=== PATIENT | female | born 1960 | race Caucasian/White ===

== ENCOUNTER 2018-07-15 19:16 | Observation (INO) ==
[2018-07-15] MEDS ORDERED: 0.9 % Sodium Chloride 1,000 ML IVC ONE ×2 (19:47→22:37)
[2018-07-15] MEDS ORDERED: Ondansetron 4 MG/2 ML VIAL IVP ONE (19:48)
[2018-07-15] MEDS ORDERED: *HR* Morphine 2 MG/ML SYRINGE IVP ONE (19:48)
[2018-07-15 20:11] LABS: Basophils % 0.1 %; Eosinophils % 0.3 %; Hematocrit 46.4 % (35.3-44.9); Hemoglobin 15.5 g/dL (11.5-15.4); Immature Granulocytes % 0.3 % (0-4); Lymphocytes # 0.4 K/mcL (0.6-4.6); Lymphocytes % 3.6 %; Mean Corpuscular HGB Conc 33.4 g/dL (31.6-35.5); Mean Corpuscular Hemoglobin 29.5 pg (28.0-33.3); Mean Corpuscular Volume 88.4 fL (83.0-100.0); Mean Platelet Volume 10.1 fL (9.4-12.4); Monocytes # 0.2 K/mcL (0.0-1.3); Monocytes % 1.6 %; Neutrophils # 9.1 K/mcL (1.6-8.9); Platelet Count 241 K/mcL (140-400); Red Blood Count 5.25 M/mcL (3.82-4.97); Red Cell Distribution Width 12.5 % (11.5-14.5); Segmented Neutrophils % 94.1 %
[2018-07-15 20:16] LABS: INR 1.1; Prothrombin Time 12.6 Seconds (9.4-12.1)
[2018-07-15 20:19] LABS: Activated Partial Thrombo Time 31.8 Seconds (26.0-36.0)
[2018-07-15 20:26] LABS: BUN/Creatinine Ratio 23 (6-26); Blood Urea Nitrogen 25 mg/dL (6-20); Calcium 9.6 mg/dL (8.6-10.3); Carbon Dioxide 25 mEq/L (23-29); Chloride 102 mEq/L (98-107); Glucose 112 mg/dL (70-105); Osmolality,Calculated 291 (280-300); Potassium 3.3 mEq/L (3.5-5.1); Sodium 138 mEq/L (136-145); Troponin I < 0.03 ng/mL (< 0.04); eGFR For Non-African Americans 53 (> 60)
[2018-07-15 20:37] LABS: Bilirubin,Urine Small (Negative); Blood,Urine Negative (Negative); Clarity,Urine Clear (Clear); Color,Urine Dark Yellow (Yellow); Glucose,Urine (UA) Normal (Normal); Ketones,Urine 15 mg/dL (Negative); Leukocyte Esterase,Urine Negative (Negative); Nitrite,Urine Negative (Negative); PH,Urine 5.5 pH Units (5.0-8.0); Protein,Urine Trace mg/dL (Neg-Trace); Specific Gravity,Urine > 1.030 (1.010-1.025); Urobilinogen,Urine Normal (Normal)
[2018-07-15 20:39] LABS: Bacteria,Urine None Seen per hpf (None-Few); Hyaline Casts,Urine None Seen per lpf (None-Few); Squamous Epithelial Cell,Urine Many per lpf (None-Few); WBC,Urine 0-3 per hpf (0-3)
[2018-07-15] MEDS ORDERED: *HR* HYDROmorphone (PF) 1 MG/ML SYRINGE IVP ONE (21:11)
[2018-07-15] MEDS ORDERED: Isovue-370 500 ML INFUS..BTL IV ONE (21:38)
[2018-07-15 22:13] LABS: Alanine Aminotransferase 14 Units/L (7-52); Albumin 4.5 g/dL (3.5-5.7); Albumin/Globulin Ratio 1.7 (1.1-2.2); Alkaline Phosphatase 90 Units/L (34-104); Aspartate Amino Transferase 31 Units/L (13-39); Bilirubin,Direct 0.2 mg/dL (0.0-0.2); Bilirubin,Indirect 0.5 mg/dL (0.0-1.2); Bilirubin,Total 0.7 mg/dL (0.3-1.0); Globulin 2.6 g/dL (2.4-3.5); Lipase 9 Units/L (11-82); Total Protein 7.1 g/dL (6.4-8.9)
[2018-07-15] MEDS ORDERED: Piperacillin/Tazobactam 3.375 GM in 0.9 % Sodium Chloride Mini Bag 100 ML IVPB ONE (22:36)
[2018-07-15] MEDS ORDERED: Levofloxacin 750 MG/150 ML 750 MG/150 ML BAG IVPB ONE (22:36)
--- NOTE | 2018-07-15 22:38 | Emergency Department Note ---
Disposition Clinical Impression: Flank pain, Mass Pneumonia Qualifiers: Pneumonia type: due to unspecified organism Laterality: unspecified laterality Lung location: unspecified part of lung Qualified Code(s): J18.9 - Pneumonia, unspecified organism Disposition: Admitted As Inpatient Condition: Good Time of Disposition: 23:05 SOB HPI - General Chief Complaint: ED Shortness of Breath/Dyspnea Stated Complaint: back pain Time Seen by Provider: 07/15/18 19:24 Source: patient, family, EMS Mode of arrival: EMS Limitations: no limitations Nursing Notes Reviewed: Yes Vital Signs Reviewed: Yes - History of Present Illness Patient presents to the ED via EMS with the chief complaint of acute right lower back pain and shortness of breath. Patient states it started several hours ago while she was in a recliner is located in her right flank and radiates into her right shoulder. States that she feels like she is getting suffocated and that she cannot breathe. She states she felt fine yesterday and has not been sick recently. She denies any fever, chills or chest pain. She denies any vomiting or diarrhea. She does feel nauseated. The pain in her right flank. Does somewhat radiate into her right lower quadrant, but is mainly in her right side. No rash or pain or swelling in her legs. No history of DVT, PE or malignancy. No recent travel or surgeries - Related Data Home Medications Medication Instructions Recorded Confirmed Amitriptyline HCl 100 mg PO HS 07/16/18 07/16/18 Estradiol [Estrace] 1 mg PO DAILY 07/16/18 07/16/18 Pregabalin [Lyrica] 150 mg PO TID 07/16/18 07/16/18 Ranitidine HCl [Acid Drill Runner Helper] 150 mg PO BID 07/16/18 07/16/18 Allergies Allergy/AdvReac Type Severity Reaction Status Date / Time adhesive tape AdvReac Itching Verified 07/16/18 01:19 latex AdvReac Itching Verified 07/16/18 01:17 Review of Systems: As reviewed in the HPI. All other systems reviewed are negative or normal. Past Medical History - Past Medical History Attestation: Yes The following information was validated with the patient. Source: patient Medical history: Reports: other Psychiatric history: Reports: no psych history - Social History Smoking Status: Never smoker Smokeless Tobacco Status: No Alcohol use: Reports: none Drug use: Reports: none Physical Exam CONSTITUTIONAL: [ill appearing in mild distress] SKIN: [Warm, dry, and intact without rash] EYES: [extraocular movements are grossly intact, clear conjunctiva] HENT: [Normocephalic, atraumatic, moist mucus membranes] NECK: [no obvious swelling, normal range of motion] PULMONARY: [normal chest rise and fall,tachypnic, shallow respirations, anxious , normal air movement CARDIOVASCULAR: [regular rate, distal extremities are warm and well perfused] GASTROINSTESTINAL: [nondistended, non-tender] GENITOURINARY: [deferred] NEUROLOGIC: [normal speech, moves all extremities] MUSCULOSKELETAL: [no gross deformities, atraumatic, + R Flank pain] PSYCHIATRIC: [anxious] - General Limitations: no limitations General appearance: alert Course Course Narrative: Patient presenting with rather abrupt right flank pain and dyspnea. looks quite umcomfortable and is anxious. Sounds like she could have a kidney stone, so we will get a CT of her abdomen and pelvis and labs. Certainly concern over PE/PNA/CHF also considered at this point. CT did not show any stone. Patient is hypoxic on room air to 90% and is still in mild respiratory distress. Placed on oxygen and it improved to 96%. We will get a CT of her chest to evaluate for PE versus pneumonia CTA did not show any PE but did show concern over bilateral pneumonia and a mass. Patient to have blood cultures and to get vanc/zosyn/levaquin b/c patient meets sepsis criteria due to resp rate, LA 2.4 and source of infection. - Reevaluation(s) Reevaluation #2: Patient's CT did not show any obvious PE. However, based on our read. It is concerning for multifocal pneumonia. We will give her an additional liter of fluid, but did not want to give full sepsis dose upfront due to the concern over possible pulmonary edema. Time: 22:37 Vital Signs Temperature 97.7 F 07/15/18 19:31 Pulse Rate 99 07/15/18 19:31 Respiratory Rate 16 07/15/18 19:31 Blood Pressure 119/63 07/15/18 19:31 O2 Sat by Pulse Oximetry 93 07/15/18 19:31 Temperature 97.8 F 07/16/18 12:15 Pulse Rate 89 07/16/18 12:15 Respiratory Rate 16 07/16/18 12:15 Blood Pressure 105/56 07/16/18 12:15 O2 Sat by Pulse Oximetry 95 07/16/18 12:15 Oxygen Delivery Oxygen Delivery Nasal Cannula Shortness of Breath/Dyspnea - Medical Records Medical records reviewed: Yes I reviewed the patient's medical records. - Lab Data Lab results reviewed: Yes I reviewed the patient's lab results. Result diagrams: 07/16/18 03:45 07/16/18 03:45 Lab Results 07/15/18 07/15/18 07/15/18 Range/Units 19:55 19:55 19:55 WBC 9.6 (4.3-11.1) K/mcL RBC 5.25 H (3.82-4.97) M/mcL Hgb 15.5 H (11.5-15.4) g/dL Hct 46.4 H (35.3-44.9) % MCV 88.4 (83.0-100.0) fL MCH 29.5 (28.0-33.3) pg MCHC 33.4 (31.6-35.5) g/dL RDW 12.5 (11.5-14.5) % Plt Count 241 (140-400) K/mcL MPV 10.1 (9.4-12.4) fL Immature Gran % 0.3 (0-4) % Seg Neutrophils % 94.1 % Lymphocytes % 3.6 % Monocytes % 1.6 % Eosinophils % 0.3 % Basophils % 0.1 % Neutrophils # 9.1 H (1.6-8.9) K/mcL Lymphocytes # 0.4 L (0.6-4.6) K/mcL Monocytes # 0.2 (0.0-1.3) K/mcL Eosinophils # 0.0 (0.0-0.6) K/mcL Basophils # 0.0 (0.0-0.2) K/mcL PT (9.4-12.1) Seconds INR APTT (26.0-36.0) Seconds Sodium 138 (136-145) mEq/L Potassium 3.3 L (3.5-5.1) mEq/L Chloride 102 (98-107) mEq/L Carbon Dioxide 25 (23-29) mEq/L BUN 25 H (6-20) mg/dL Creatinine 1.07 (0.60-1.20) mg/dL Est GFR ( Amer) > 60 (> 60) Est GFR (Non-Af Amer) 53 L (> 60) BUN/Creatinine Ratio 23 (6-26) Glucose 112 H (70-105) mg/dL Calculated Osmolality 291 (280-300) Lactic Acid (0.5-2.2) mmol/L Calcium 9.6 (8.6-10.3) mg/dL Total Bilirubin 0.7 (0.3-1.0) mg/dL Direct Bilirubin 0.2 (0.0-0.2) mg/dL Indirect Bilirubin 0.5 (0.0-1.2) mg/dL AST 31 (13-39) Units/L ALT 14 (7-52) Units/L Alkaline Phosphatase 90 (34-104) Units/L Troponin I < 0.03 (< 0.04) ng/mL B-Natriuretic Peptide 24 (Less than 100) pg/mL Serum Total Protein 7.1 (6.4-8.9) g/dL Albumin 4.5 (3.5-5.7) g/dL Globulin 2.6 (2.4-3.5) g/dL Albumin/Globulin Ratio 1.7 (1.1-2.2) Lipase 9 L (11-82) Units/L Urine Color (Yellow) Urine Clarity (Clear) Urine pH (5.0-8.0) pH Units Ur Specific [place] (1.010-1.025) Urine Protein (Neg-Trace) mg/dL Urine Glucose (UA) (Normal) mg/dL Urine Ketones (Negative) mg/dL Urine Blood (Negative) Urine Nitrite (Negative) Urine Bilirubin (Negative) Urine Urobilinogen (Normal) mg/dL Ur Leukocyte Esterase (Negative) Urine Microscopic RBC (0-3) per hpf Urine Microscopic WBC (0-3) per hpf Ur Squamous Epith Cells (None-Few) per lpf Urine Bacteria (None-Few) per hpf Hyaline Casts (None-Few) per lpf Ur Culture Indicated? (NO) 07/15/18 07/15/18 07/15/18 Range/Units 19:55 20:07 20:17 WBC (4.3-11.1) K/mcL RBC (3.82-4.97) M/mcL Hgb (11.5-15.4) g/dL Hct (35.3-44.9) % MCV (83.0-100.0) fL MCH (28.0-33.3) pg MCHC (31.6-35.5) g/dL RDW (11.5-14.5) % Plt Count (140-400) K/mcL MPV (9.4-12.4) fL Immature Gran % (0-4) % Seg Neutrophils % % Lymphocytes % % Monocytes % % Eosinophils % % Basophils % % Neutrophils # (1.6-8.9) K/mcL Lymphocytes # (0.6-4.6) K/mcL Monocytes # (0.0-1.3) K/mcL Eosinophils # (0.0-0.6) K/mcL Basophils # (0.0-0.2) K/mcL PT 12.6 H (9.4-12.1) Seconds INR 1.1 APTT 31.8 (26.0-36.0) Seconds Sodium (136-145) mEq/L Potassium (3.5-5.1) mEq/L Chloride (98-107) mEq/L Carbon Dioxide (23-29) mEq/L BUN (6-20) mg/dL Creatinine (0.60-1.20) mg/dL Est GFR ( Amer) (> 60) Est GFR (Non-Af Amer) (> 60) BUN/Creatinine Ratio (6-26) Glucose (70-105) mg/dL Calculated Osmolality (280-300) Lactic Acid 2.4 H (0.5-2.2) mmol/L Calcium (8.6-10.3) mg/dL Total Bilirubin (0.3-1.0) mg/dL Direct Bilirubin (0.0-0.2) mg/dL Indirect Bilirubin (0.0-1.2) mg/dL AST (13-39) Units/L ALT (7-52) Units/L Alkaline Phosphatase (34-104) Units/L Troponin I (< 0.04) ng/mL B-Natriuretic Peptide (Less than 100) pg/mL Serum Total Protein (6.4-8.9) g/dL Albumin (3.5-5.7) g/dL Globulin (2.4-3.5) g/dL Albumin/Globulin Ratio (1.1-2.2) Lipase (11-82) Units/L Urine Color Dark Yellow (Yellow) Urine Clarity Clear (Clear) Urine pH 5.5 (5.0-8.0) pH Units Ur Specific [place] > 1.030 H (1.010-1.025) Urine Protein Trace (Neg-Trace) mg/dL Urine Glucose (UA) Normal (Normal) mg/dL Urine Ketones 15 H (Negative) mg/dL Urine Blood Negative (Negative) Urine Nitrite Negative (Negative) Urine Bilirubin Small H (Negative) Urine Urobilinogen Normal (Normal) mg/dL Ur Leukocyte Esterase Negative (Negative) Urine Microscopic RBC 3-5 H (0-3) per hpf Urine Microscopic WBC 0-3 (0-3) per hpf Ur Squamous Epith Cells Many H (None-Few) per lpf Urine Bacteria None Seen (None-Few) per hpf Hyaline Casts None Seen (None-Few) per lpf Ur Culture Indicated? NO (NO) 07/15/18 Range/Units 22:35 WBC (4.3-11.1) K/mcL RBC (3.82-4.97) M/mcL Hgb (11.5-15.4) g/dL Hct (35.3-44.9) % MCV (83.0-100.0) fL MCH (28.0-33.3) pg MCHC (31.6-35.5) g/dL RDW (11.5-14.5) % Plt Count (140-400) K/mcL MPV (9.4-12.4) fL Immature Gran % (0-4) % Seg Neutrophils % % Lymphocytes % % Monocytes % % Eosinophils % % Basophils % % Neutrophils # (1.6-8.9) K/mcL Lymphocytes # (0.6-4.6) K/mcL Monocytes # (0.0-1.3) K/mcL Eosinophils # (0.0-0.6) K/mcL Basophils # (0.0-0.2) K/mcL PT (9.4-12.1) Seconds INR APTT (26.0-36.0) Seconds Sodium (136-145) mEq/L Potassium (3.5-5.1) mEq/L Chloride (98-107) mEq/L Carbon Dioxide (23-29) mEq/L BUN (6-20) mg/dL Creatinine (0.60-1.20) mg/dL Est GFR ( Amer) (> 60) Est GFR (Non-Af Amer) (> 60) BUN/Creatinine Ratio (6-26) Glucose (70-105) mg/dL Calculated Osmolality (280-300) Lactic Acid 2.2 (0.5-2.2) mmol/L Calcium (8.6-10.3) mg/dL Total Bilirubin (0.3-1.0) mg/dL Direct Bilirubin (0.0-0.2) mg/dL Indirect Bilirubin (0.0-1.2) mg/dL AST (13-39) Units/L ALT (7-52) Units/L Alkaline Phosphatase (34-104) Units/L Troponin I (< 0.04) ng/mL B-Natriuretic Peptide (Less than 100) pg/mL Serum Total Protein (6.4-8.9) g/dL Albumin (3.5-5.7) g/dL Globulin (2.4-3.5) g/dL Albumin/Globulin Ratio (1.1-2.2) Lipase (11-82) Units/L Urine Color (Yellow) Urine Clarity (Clear) Urine pH (5.0-8.0) pH Units Ur Specific [place] (1.010-1.025) Urine Protein (Neg-Trace) mg/dL Urine Glucose (UA) (Normal) mg/dL Urine Ketones (Negative) mg/dL Urine Blood (Negative) Urine Nitrite (Negative) Urine Bilirubin (Negative) Urine Urobilinogen (Normal) mg/dL Ur Leukocyte Esterase (Negative) Urine Microscopic RBC (0-3) per hpf Urine Microscopic WBC (0-3) per hpf Ur Squamous Epith Cells (None-Few) per lpf Urine Bacteria (None-Few) per hpf Hyaline Casts (None-Few) per lpf Ur Culture Indicated? (NO) - Radiology Data Radiology results reviewed: Yes I reviewed the patient's radiology results. - EKG Data EKG attestation: Yes I reviewed and interpreted this EKG. EKG results narrative: Sinus rhythm, rate 94, incomplete right bundle branch block, FL interval 138, QTC 456, QRS 110, left axis deviation, no acute ischemic changes Critical Care Time Critical Care Time: Yes Total Critical Care Time: 33 Attestation: Acute pneumonia w/ hypoxia and tachycardia/tachypnea Attestation Statement - Attestation Attestation: Dr Fung note: Pt seen in conjunction w/ resident Dr Garcia ; please see Dr Garcia's charting for complete documentation; I spent face to face time w/ pt and agree w/ pt's treatment and disposition; Pt accepted by Dr Easley @ 11 pm; pt status improved; pt chief complaint was rt flank pain and shortness of breath, onset over a short periord of less than 30 mins whiile seated @ home; hr improved; CT scan and labs reviewed; no PE noted; No hypoxia at time of admission , with improved heart rate; pt does c/o chest pain w/ inspiration only, and does have shortness of breath and a relative hypoxia w/ sats of 90-92%
[2018-07-16] MEDS: OXYCODONE Oral CONC 10 MG/0.5 ML ORAL.SYG SL PRN ×3 (02:34→13:55)
[2018-07-16] MEDS: Ondansetron ODT 4 MG TAB.RAPDIS SL PRN ×3 (02:34→16:33)
[2018-07-16] MEDS ORDERED: Naloxone 0.4 MG/ML INJ IVP PRN (02:45)
[2018-07-16 04:03] LABS: Hematocrit 40.5 % (35.3-44.9); Mean Corpuscular HGB Conc 33.8 g/dL (31.6-35.5); Mean Corpuscular Hemoglobin 29.8 pg (28.0-33.3); Mean Platelet Volume 10.6 fL (9.4-12.4); Platelet Count 159 K/mcL (140-400); Red Cell Distribution Width 12.7 % (11.5-14.5)
[2018-07-16 04:04] LABS: Hemoglobin 13.7 g/dL (11.5-15.4)
[2018-07-16 04:21] LABS: Troponin I < 0.03 ng/mL (< 0.04)
[2018-07-16 04:26] LABS: BUN/Creatinine Ratio 22 (6-26); Blood Urea Nitrogen 21 mg/dL (6-20); Calcium 8.3 mg/dL (8.6-10.3); Carbon Dioxide 19 mEq/L (23-29); Chloride 109 mEq/L (98-107); Glucose 121 mg/dL (70-105); Osmolality,Calculated 292 (280-300); Potassium 4.5 mEq/L (3.5-5.1); Sodium 139 mEq/L (136-145); eGFR For Non-African Americans > 60 (> 60)
[2018-07-16] MEDS ORDERED: OXYCODONE Oral CONC 10 MG/0.5 ML ORAL.SYG SL PRN ×2 (05:24→09:30)
[2018-07-16] MEDS ORDERED: Pantoprazole 40 MG VIAL IVP ONE (05:26)
[2018-07-16] MEDS ORDERED: GI Cocktail 40 ML EACH PO ONE (05:27)
--- NOTE | 2018-07-16 08:29 | Electrocardiograph Report ---
[address] [address] Test Date: 2018-07-15 Pat Name: Shivani Sy Department: Room: 2N7 Gender: F Consulting Business Developer: : [id number] Requested By: [id number] Order Number: [id number] Reading MD: Amadeo Berry Measurements Intervals [place] Rate: 94 P: 57 NH: 138 QRS: -27 QRSD: 110 T: 63 QT: 364 QTc: 456 Interpretive Statements Sinus rhythm Incomplete RBBB and LAFB Low voltage, precordial leads Electronically Signed On 07-16-2018 8:27:42 EDT by Amadeo Berry
--- NOTE | 2018-07-16 08:32 | Internal Med History&Physical ---
Date of Encounter: 07/16/18 Time of Encounter: 01:50 Internal Medicine - H&P: HPI Chief complaint: Abdominal pain, possible pneumonia Admitted From: Home Plans for Post Hospital Care: Home History of present illness: Ms. Sy is a 58 year old female Patient presented to the ER for chills and shortness of breath that began on the day of admission. She also has had pain that is focused in the lower chest/ upper right abdomen that radiates to her back. She had been at her doctor earlier today for evaluation of a painful furuncle in her left armpit, but then had this pain and came to the ER for further evaluation. She states that she had similar pain like this, found to be her gallbladder. She had to have her gallbladder removed at that time. She denies diarrhea and constipation, has had nausea and vomited 1 time. She also experienced chest heaviness that felt 'like an elephant sitting on her chest' but this has since passed. She has a significant history of neurofibromatosis for which she sees a specialist for in [place]. In th ER her initial lactate was elevated at 2.4, but later resolved to <0.2. Her lipase was also low at 9. She did not have an elevated white count. Chest x- ray showed ill-defined perihilar and bibasilar opacities concerning for pulmonary edema. Abdomen and pelvic CT showed no acute finding accounting for her pain. CTA was negative for PE, but a developing pneumonia could not be excluded. The CTA also showed mild adenopathy in the superior mediastinum as well. Tumor should be considered. Upon my assessment, patient was still having pain in the right side of her lower chest/ upper abdomen. I asked her about the mediastinum findings, and apparently she and her doctor have known about this, and it is related to her NF. She also mentioned pain in her left calf that started less than 1 day ago. Past Med Surg Social Fam HX - Past Medical History Medical history: other Additional medical history: neurofibromytosis Psychiatric history: anxiety, depression - Social History Smoking Status: Never smoker Smokeless Tobacco Status: No Alcohol use: none Drug use: none - Family History Mother Name: Karli Barnhart Age at : 69 Cause of : cancer Hx Family Cancer: Yes (stomach) Internal Medicine - H&P: Meds Amitriptyline HCl 100 mg PO HS 07/16/18 [History] Estradiol [Estrace] 1 mg PO DAILY 07/16/18 [History] Pregabalin [Lyrica] 150 mg PO TID 07/16/18 [History] Ranitidine HCl [Acid Blanchard Grinder Operator] 150 mg PO BID 07/16/18 [History] 3 Allergy/AdvReac Type Severity Reaction Status Date / Time adhesive tape AdvReac Itching Verified 07/16/18 01:19 latex AdvReac Itching Verified 07/16/18 01:17 All Systems PM: A 10-system review of systems was performed and is negative for pertinent findings except as documented above in the HPI. - Constitutional Vitals: Temp Pulse Resp BP Pulse Ox 98.7 F 102 16 99/52 98 07/16/18 07:28 07/16/18 07:28 07/16/18 07:28 07/16/18 07:28 07/16/18 07:28 General appearance: Present: cooperative, mild distress, A&O X 3, pleasant, answers questions appropriately - Head Head exam: Present: normal inspection - Eye Eye exam: Present: EOMI, normal appearance - Respiratory Respiratory exam: Present: rales. Absent: chest wall tenderness, decreased breath sounds, wheezes - Cardiovascular Cardiovascular exam: Present: RRR. Absent: diastolic murmur, systolic murmur - GI/Abdominal GI/Abdominal exam: Present: normal bowel sounds, soft. Absent: tenderness - Extremities Exam Extremities exam: Present: calf tenderness, warm, radial pulses palpable and symmetrical. Absent: pedal edema, tenderness - Neurological Exam Neurological exam: Present: no focal deficits, strengths equal and symetr throughout. Absent: motor sensory deficit, facial droop, speech deficit - Skin Skin exam: Present: dry, normal color, warm Internal Med - H&P Results - Labs CBC & Chem 7: 07/16/18 03:45 07/16/18 03:45 Labs: Short CBC 07/16/18 Range/Units 03:45 WBC 13.2 H (4.3-11.1) K/mcL Hgb 13.7 D (11.5-15.4) g/dL Hct 40.5 (35.3-44.9) % Plt Count 159 (140-400) K/mcL BMP 07/16/18 03:45 Sodium 139 Potassium 4.5 D Chloride 109 H Carbon Dioxide 19 L BUN 21 H Creatinine 0.94 Glucose 121 H Calcium 8.3 L Cardiac Enzymes 07/16/18 Range/Units 03:45 Troponin I < 0.03 (< 0.04) ng/mL - Assessment and plan (1) Pneumonia Current Visit: Yes Status: Acute Assessment and plan: Possible pneumonia on CTA, started on triple antibiotics in the ER, no blood cultures drawn. Asked the ER physician about their antibiotic choice, and did not get definitive answer as to why this choice was made as patient has not had hospitalizations recently nor is she from a custodial or immunocompromised. Will continue to treat for possible pneumonia, but will reduce antibiotics to just levaquin. Continue to monitor for worsening infection. Qualifiers: Pneumonia type: due to unspecified organism Laterality: unspecified laterality Lung location: unspecified part of lung Qualified Code(s): J18.9 - Pneumonia, unspecified organism (2) Flank pain Current Visit: Yes Status: Acute Assessment and plan: Flank and possible chest pain of unknown origin. Could be related to pneumonia, work up in the ER negative for definitive cause. Lipase not elevated, and patient does not have a gallbladder. There was mild dilatation of the common duct to the ampulla, unclear if this is contributing to her pain. Continue to trend troponins science teacher Oxycodone sublingual for pain Protonix 20mg IV Zofran 4mg Q6H GI cocktail (3) Mass Current Visit: Yes Status: Acute Assessment and plan: Patient apparently has known about a mass in the mediastinum, due to her history of NF. Follow up outpatient with specialist (4) Neurofibromatosis Current Visit: Yes Status: Acute Assessment and plan: chronic, continue current management. (5) Calf pain Current Visit: Yes Status: Acute Assessment and plan: Slightly tender on palpation. No known history of clots. Venous doppler in the morning. Qualifiers: Qualified Code(s): M79.662 - Pain in left lower leg - Time Spent With Patient Total time spent is greater than 50% in coordination of care (as documented) at patient's floor/unit and/or counseling patient: Greater than 35 minutes
--- NOTE | 2018-07-16 09:11 | Internal Med Progress Note ---
<Wendy Singh - Last Filed: 07/16/18 16:03> Hospitalist Progress Note - Encounter Date of Encounter: 07/16/18 Time of Encounter: 09:08 - Subjective Interval History: 58 y/o female with history of Neurofibromatous presents with right sided flank pain hat has improved with oxycodone - she was diagnosed with PNA. She is asking for higher dose of oxycodone. She admits to vomiting 1x last night with continued nausea and another epsidoe of bilious vomiting today in radiology- denies diarrhea or constipation. Her shortness of breath has improved denies cough , wheeze or history of asthma/COPD. She feels chills but denies fevers. Describes onset of symptoms yesterday as sudden pain while at rest - no history of travel , sick contacts, or recent hospital admissions. She endorses chronic leg pain that is twisting and relieved by lyrica - pain is at baseline and denies swelling. She has painful boil in left axilla treated by PCP with bactrim and cephalexin with planed for I&D on Thursday if not improved - second abscess in groin region. She denies history of kidney stones but admits to chronic urinary hesitancy and incomplete emptying - denies polyuria, nocturia and painful urination. Denies history of EtOH abuse or smoking. She admits to several abdominal surgeries ; hysterectomy, two bowel resections for masses, and cholecystectomy. She clarified that she takes bith amitripaline and citalopram. - Exam Vitals: Temp Pulse Resp BP Pulse Ox 98.7 F 102 16 99/52 98 07/16/18 07:28 07/16/18 07:28 07/16/18 07:28 07/16/18 07:28 07/16/18 07:28 Exam: General : A&Ox3, diaphoresis and in mild distress Cardiac: RRR no murmurs or gallop Respiratory: CTAB no wheeze or rales Abdomen: Soft, not distended, no tenderness, no masses or organomegaly, no CVA tenderness Extremities: pulses intact, no pedal edema - furuncle 1-2 cm in diameter with erythema and white head very superficial MSK: left sided back pain tender to palpation ENT: oral mucosa wet with out lesions, conjectivea injected - Assessment and Plan (1) Sepsis Current Visit: Yes Status: Acute Assessment and Plan: meets criteria for SIRS with tachycardia and tachpneic in ER with elevated WBC plus likely source of PNA (2) Pneumonia Current Visit: Yes Status: Acute Assessment and Plan: community acquired PNA: lactic acid of 2.4 and increased WBC to 13.[address] shows bibasilar opacity - discontinued vanc on admission - continue levaquin and zosyn - IVF 75 ml/hr I am not convinced that her PNA fully explained her back pain at left lower TH- LB junction Labs - legionella antigen, strep pnuemo antigen, and mycoplasma pneumo Ig - blood clx - procalcitonin - respiratory infections panel (3) Flank pain Current Visit: Yes Status: Acute Assessment and Plan: possible pleurtic chest pain due to PNA CTA showed "bibasilar dependent opacity, likely atelectasis" - continue oxycodone 5mg q 6hrs and 10mg q 6hrs - continue zofran PRN - continue prn phenegran Likley due to muscularskeletal as many other diagnosis are ruled out - aortic aneurysm rupture ruled out with CTA chest, abdomen and pelvis - PE: none seen on CTA - nephrolithiasis ruled out by CT - pancreatitis unlikely with negative lipase - cardiac cause: three negative troponin - bowel obstruction unlikely as not seen on imaging (4) Calf pain Current Visit: Yes Status: Chronic Assessment and Plan: chronic bilateral calf pain - continue home Lyrica - US duplex L ordered at admission is wnl (5) Neurofibromatosis Current Visit: Yes Status: Chronic Assessment and Plan: Treated as out patient (6) Mass Current Visit: Yes Status: Chronic Assessment and Plan: Likely due to Neurofibromatous - patient already aware of mass (7) Abscess Current Visit: Yes Status: Acute Assessment and Plan: Located axilla and groin - continue antibiotics for PNA DVT Prophylaxis: Heparin - Time Spent with Patient Total time spent is greater than 50% in coordination of care (as documented) at patient's floor/unit and/or counseling patient: 25 - 35 minutes Plan of Care Discussed with: patient Internal Medicine: Result - Labs CBC & Chem 7: 07/16/18 03:45 07/16/18 03:45 Labs: Short CBC 07/16/18 Range/Units 03:45 WBC 13.2 H (4.3-11.1) K/mcL Hgb 13.7 D (11.5-15.4) g/dL Hct 40.5 (35.3-44.9) % Plt Count 159 (140-400) K/mcL BMP 07/16/18 03:45 Sodium 139 Potassium 4.5 D Chloride 109 H Carbon Dioxide 19 L BUN 21 H Creatinine 0.94 Glucose 121 H Calcium 8.3 L Cardiac Enzymes 07/16/18 Range/Units 03:45 Troponin I < 0.03 (< 0.04) ng/mL - ABG Interpretation ABG results: PT/INR, D-dimer PT 12.6 Seconds (9.4-12.1) H 07/15/18 19:55 Consult Discharge Plan - Plan Referrals: Dillan Kim DO [Primary Care Provider] - <Juliane Guajardo - Last Filed: 07/17/18 16:22> Hospitalist Progress Note - Encounter Date of Encounter: 07/17/18 - Exam Vitals: Temp Pulse Resp BP Pulse Ox 96.9 F L 90 17 115/65 92 07/17/18 16:17 07/17/18 16:17 07/17/18 16:17 07/17/18 16:17 07/17/18 16:17 - Assessment and Plan (1) Sepsis Current Visit: Yes Status: Acute (2) Pneumonia Current Visit: Yes Status: Acute (3) Neurofibromatosis Current Visit: Yes Status: Chronic (4) Flank pain Current Visit: Yes Status: Acute (5) Calf pain Current Visit: Yes Status: Chronic (6) Mass Current Visit: Yes Status: Chronic - Time Spent with Patient Total time spent is greater than 50% in coordination of care (as documented) at patient's floor/unit and/or counseling patient: Internal Medicine: Result - Labs CBC & Chem 7: 07/17/18 05:20 07/17/18 05:20 Labs: Short CBC 07/17/18 Range/Units 05:20 WBC 5.5 D (4.3-11.1) K/mcL Hgb 12.3 (11.5-15.4) g/dL Hct 36.3 (35.3-44.9) % Plt Count 148 (140-400) K/mcL Neutrophils # 4.9 (1.6-8.9) K/mcL BMP 07/17/18 05:20 Sodium 134 L Potassium 3.6 Chloride 106 Carbon Dioxide 21 L BUN 17 Creatinine 0.74 Glucose 84 Calcium 8.0 L - ABG Interpretation ABG results: PT/INR, D-dimer PT 12.6 Seconds (9.4-12.1) H 07/15/18 19:55 - Attending Attestation I examined this patient and my medical decision-making was reviewed with the Resident Physician Dr. Mejias. I agree with the documented findings, disposition and treatment plan as described except to the extent set forth below. <Wendy Singh - Last Filed: 07/16/18 16:03> (2) Pneumonia Qualifiers: Pneumonia type: due to unspecified organism Laterality: unspecified laterality Lung location: unspecified part of lung Qualified Code(s): J18.9 - Pneumonia, unspecified organism (4) Calf pain Qualifiers: Laterality: bilateral Qualified Code(s): M79.661 - Pain in right lower leg; M79.662 - Pain in left lower leg <Juliane Guajardo - Last Filed: 07/17/18 16:22> (1) Sepsis Qualifiers: Sepsis type: sepsis due to unspecified organism Qualified Code(s): A41.9 - Sepsis, unspecified organism (2) Pneumonia Qualifiers: Pneumonia type: due to unspecified organism Laterality: unspecified laterality Lung location: unspecified part of lung Qualified Code(s): J18.9 - Pneumonia, unspecified organism (5) Calf pain Qualifiers: Laterality: bilateral Qualified Code(s): M79.661 - Pain in right lower leg; M79.662 - Pain in left lower leg
[2018-07-16] MEDS ORDERED: Isovue-370 500 ML INFUS..BTL IV ONE (09:23)
[2018-07-16] MEDS ORDERED: *HR* Promethazine 25 MG/ML VIAL IVP STA (10:54)
[2018-07-16] MEDS: Acetaminophen 325 MG TABLET PO PRN (15:21)
[2018-07-16] MEDS: Pregabalin 75 MG CAPSULE PO SCH ×2 (15:21→20:56)
[2018-07-16] MEDS: Piperacillin/Tazobactam 3.375 GM in 0.9 % Sodium Chloride Mini Bag 100 ML IVPB SCH (15:21)
[2018-07-16] MEDS: 0.9 % Sodium Chloride 1,000 ML IVC SCH (16:33)
[2018-07-16] MEDS: *HR* Heparin 5,000 UNIT/ML VIAL SQ SCH (16:33)
[2018-07-16] MEDS ORDERED: Dextrose Gel 15 GM/37.5 ML TUBE PO PRN ×2 (20:56)
[2018-07-16] MEDS: Famotidine 20 MG TABLET PO SCH (20:56)
[2018-07-16] MEDS ORDERED: D5% in Water 1,000 ML IVC PRN (20:56)
[2018-07-16] MEDS: *HR* Dextrose 50 % in Water (Syg) 50 ML SYRINGE IVP PRN (21:06)
[2018-07-16] MEDS: *HR* Promethazine 25 MG/ML VIAL IVP PRN (21:12)
[2018-07-17] MEDS: Acetaminophen 325 MG TABLET PO PRN ×2 (00:44→09:15)
[2018-07-17] MEDS: Piperacillin/Tazobactam 3.375 GM in 0.9 % Sodium Chloride Mini Bag 100 ML IVPB SCH ×2 (00:45→09:44)
[2018-07-17 02:05] LABS: Adenovirus Not Detected (Not Detect); Bordetella Pertussis Not Detected (Not Detect); Chlamydophila pneumoniae Not Detected (Not Detect); Coronavirus 229E Not Detected (Not Detect); Coronavirus HKU1 Not Detected (Not Detect); Coronavirus NL63 Not Detected (Not Detect); Coronavirus OC43 Not Detected (Not Detect); Human Metapneumovirus Not Detected (Not Detect); Human Rhinovirus/Enterovirus Not Detected (Not Detect); Influenza A Subtype 2009 H1 Not Detected (Not Detect); Influenza A Untypeable Not Detected (Not Detect); Influenza B Not Detected (Not Detect); Mycoplasma pneumoniae Not Detected (Not Detect); Parainfluenza Virus 1 Not Detected (Not Detect); Parainfluenza Virus 2 Not Detected (Not Detect); Parainfluenza Virus 3 Not Detected (Not Detect); Parainfluenza Virus 4 Not Detected (Not Detect); Respiratory Syncytial Virus Not Detected (Not Detect)
[2018-07-17 05:53] LABS: Basophils % 0.2 %; Eosinophils # 0.2 K/mcL (0.0-0.6); Eosinophils % 3.1 %; Hematocrit 36.3 % (35.3-44.9); Hemoglobin 12.3 g/dL (11.5-15.4); Immature Granulocytes % 0.6 % (0-4); Lymphocytes # 0.2 K/mcL (0.6-4.6); Lymphocytes % 3.7 %; Mean Corpuscular HGB Conc 33.9 g/dL (31.6-35.5); Mean Corpuscular Hemoglobin 30.2 pg (28.0-33.3); Mean Corpuscular Volume 89.2 fL (83.0-100.0); Mean Platelet Volume 10.2 fL (9.4-12.4); Monocytes # 0.2 K/mcL (0.0-1.3); Monocytes % 2.9 %; Neutrophils # 4.9 K/mcL (1.6-8.9); Platelet Count 148 K/mcL (140-400); Red Blood Count 4.07 M/mcL (3.82-4.97); Red Cell Distribution Width 12.8 % (11.5-14.5); Segmented Neutrophils % 89.5 %
[2018-07-17 06:19] LABS: BUN/Creatinine Ratio 23 (6-26); Blood Urea Nitrogen 17 mg/dL (6-20); Carbon Dioxide 21 mEq/L (23-29); Chloride 106 mEq/L (98-107); Glucose 84 mg/dL (70-105); Osmolality,Calculated 279 (280-300); Potassium 3.6 mEq/L (3.5-5.1); Sodium 134 mEq/L (136-145); eGFR For Non-African Americans > 60 (> 60)
[2018-07-17] MEDS: 0.9 % Sodium Chloride 1,000 ML IVC SCH (06:30)
[2018-07-17] MEDS: *HR* Heparin 5,000 UNIT/ML VIAL SQ SCH ×2 (06:30→18:44)
[2018-07-17] MEDS: *HR* Dextrose 50 % in Water (Syg) 50 ML SYRINGE IVP PRN (06:30)
[2018-07-17] MEDS: Levofloxacin 750 MG/150 ML 750 MG/150 ML BAG IVPB SCH (09:45)
[2018-07-17] MEDS: Famotidine 20 MG TABLET PO SCH ×2 (09:46→22:12)
[2018-07-17] MEDS: Pregabalin 75 MG CAPSULE PO SCH ×3 (09:46→22:13)
[2018-07-17] MEDS: *HR* Promethazine 25 MG/ML VIAL IVP PRN ×2 (09:46→18:44)
[2018-07-17] MEDS: OXYCODONE Oral CONC 10 MG/0.5 ML ORAL.SYG SL PRN ×2 (11:31→23:47)
--- NOTE | 2018-07-17 16:06 | Internal Med Progress Note ---
Hospitalist Progress Note - Encounter Date of Encounter: 07/17/18 Time of Encounter: 16:04 - Subjective Interval History: Patient states she feels significantly better than yesterday. She no longer has back pain, nausea/vomiting is resolved. Denies fevers/chills, SOB, chest pain. - Exam Vitals: Temp Pulse Resp BP Pulse Ox 97.6 F 90 15 118/72 95 07/17/18 11:29 07/17/18 11:29 07/17/18 11:29 07/17/18 11:29 07/17/18 11:29 Exam: General : A&Ox3, NAD Cardiac: RRR Respiratory: Course breath sounds throughout Abdomen: Soft, not distended, no tenderness, no masses or organomegaly, no CVA tenderness Extremities: pulses intact, no pedal edema MSK: left sided back pain tender to palpation HEENT: MMM - Assessment and Plan (1) Sepsis Current Visit: Yes Status: Acute Assessment and Plan: 3 SIRS criteria on admission for leukocytosis, tachycardia, and tachypnea Source is pneumonia as seen on CTA chest. Lactic Acid on admission 2.4 now is within normal limits Blood cultures no growth to date Clinically improving, sepsis resolved. De escalate therapy today currently on Levaquin and Zosyn. Will DC Zosyn. (2) Pneumonia Current Visit: Yes Status: Acute Assessment and Plan: Resp viral panel negative. CTA showed findings of possible pneumonia Procalcitonin pending. Continue Levaquin, DC Zosyn. (3) Neurofibromatosis Current Visit: Yes Status: Chronic (4) Flank pain Current Visit: Yes Status: Acute Assessment and Plan: possible pleurtic chest pain due to PNA. CTA showed "bibasilar dependent opacity , likely atelectasis" Other likely cause is musculoskelatal. - Negative for aortic dissection, ruled out with CTA chest, abdomen and pelvis - Negative for PE: none seen on CTA - negative nephrolithiasis ruled out by CT - Negative pancreatitis unlikely with negative lipase - cardiac cause: three negative troponin (5) Calf pain Current Visit: Yes Status: Chronic Assessment and Plan: chronic bilateral calf pain - continue home Lyrica - US duplex L ordered at admission is wnl (6) Mass Current Visit: Yes Status: Chronic Assessment and Plan: Likely due to Neurofibromatous - patient already aware of mass - Time Spent with Patient Total time spent is greater than 50% in coordination of care (as documented) at patient's floor/unit and/or counseling patient: Internal Medicine: Result - Labs CBC & Chem 7: 07/17/18 05:20 07/17/18 05:20 Labs: Short CBC 07/17/18 Range/Units 05:20 WBC 5.5 D (4.3-11.1) K/mcL Hgb 12.3 (11.5-15.4) g/dL Hct 36.3 (35.3-44.9) % Plt Count 148 (140-400) K/mcL Neutrophils # 4.9 (1.6-8.9) K/mcL BMP 07/17/18 05:20 Sodium 134 L Potassium 3.6 Chloride 106 Carbon Dioxide 21 L BUN 17 Creatinine 0.74 Glucose 84 Calcium 8.0 L - ABG Interpretation ABG results: PT/INR, D-dimer PT 12.6 Seconds (9.4-12.1) H 07/15/18 19:55 - VTE Documentation of Mechanical Device: Intermittent pneumatic compression device Consult Discharge Plan - Plan Referrals: Dillan Kim DO [Primary Care Provider] - (1) Sepsis Qualifiers: Sepsis type: sepsis due to unspecified organism Qualified Code(s): A41.9 - Sepsis, unspecified organism (2) Pneumonia Qualifiers: Pneumonia type: due to unspecified organism Laterality: unspecified laterality Lung location: unspecified part of lung Qualified Code(s): J18.9 - Pneumonia, unspecified organism (5) Calf pain Qualifiers: Laterality: bilateral Qualified Code(s): M79.661 - Pain in right lower leg; M79.662 - Pain in left lower leg
[2018-07-17] MEDS: Ondansetron ODT 4 MG TAB.RAPDIS SL PRN (23:46)
[2018-07-18] MEDS: *HR* Heparin 5,000 UNIT/ML VIAL SQ SCH ×2 (05:53→17:13)
[2018-07-18] MEDS: OXYCODONE Oral CONC 10 MG/0.5 ML ORAL.SYG SL PRN ×2 (05:54→23:59)
[2018-07-18 06:52] LABS: Basophils % 0.2 %; Eosinophils # 0.2 K/mcL (0.0-0.6); Eosinophils % 3.2 %; Hematocrit 36.6 % (35.3-44.9); Hemoglobin 12.5 g/dL (11.5-15.4); Immature Granulocytes % 1.1 % (0-4); Immature Platelets 3.8 % (1.1-6.1); Lymphocytes # 0.5 K/mcL (0.6-4.6); Lymphocytes % 8.8 %; Mean Corpuscular HGB Conc 34.2 g/dL (31.6-35.5); Mean Corpuscular Hemoglobin 29.7 pg (28.0-33.3); Mean Corpuscular Volume 86.9 fL (83.0-100.0); Mean Platelet Volume 10.2 fL (9.4-12.4); Monocytes # 0.4 K/mcL (0.0-1.3); Monocytes % 6.3 %; Neutrophils # 4.6 K/mcL (1.6-8.9); Platelet Count 187 K/mcL (140-400); Red Blood Count 4.21 M/mcL (3.82-4.97); Red Cell Distribution Width 12.9 % (11.5-14.5); Segmented Neutrophils % 80.4 %
[2018-07-18 07:10] LABS: BUN/Creatinine Ratio 11 (6-26); Blood Urea Nitrogen 8 mg/dL (6-20); Calcium 8.6 mg/dL (8.6-10.3); Carbon Dioxide 27 mEq/L (23-29); Chloride 102 mEq/L (98-107); Glucose 121 mg/dL (70-105); Osmolality,Calculated 276 (280-300); Potassium 3.6 mEq/L (3.5-5.1); Sodium 133 mEq/L (136-145); eGFR For Non-African Americans > 60 (> 60)
[2018-07-18] MEDS: Famotidine 20 MG TABLET PO SCH ×2 (08:53→20:26)
[2018-07-18] MEDS: Pregabalin 75 MG CAPSULE PO SCH ×3 (08:53→20:26)
[2018-07-18] MEDS: Levofloxacin 750 MG/150 ML 750 MG/150 ML BAG IVPB SCH (08:55)
[2018-07-18] MEDS: Acetaminophen 325 MG TABLET PO PRN (10:05)
--- NOTE | 2018-07-18 11:55 | Internal Med Progress Note ---
Hospitalist Progress Note - Encounter Date of Encounter: 07/18/18 Time of Encounter: 12:36 - Subjective Interval History: Patient states she feels significantly better than yesterday. She no longer has back pain, nausea/vomiting is resolved. Denies fevers/chills, SOB, chest pain. - Exam Vitals: Temp Pulse Resp BP Pulse Ox 98.1 F 93 16 102/75 95 07/18/18 11:22 07/18/18 11:22 07/18/18 11:22 07/18/18 11:22 07/18/18 11:22 Exam: General : A&Ox3, NAD Cardiac: RRR Respiratory: Course breath sounds throughout Abdomen: Soft, not distended, no tenderness, no masses or organomegaly, no CVA tenderness Extremities: pulses intact, no pedal edema MSK: left sided back pain tender to palpation HEENT: MMM - Assessment and Plan (1) Sepsis Current Visit: Yes Status: Acute Assessment and Plan: 3 SIRS criteria on admission for leukocytosis, tachycardia, and tachypnea Source is pneumonia as seen on CTA chest. Lactic Acid on admission 2.4 now is within normal limits Blood cultures no growth to date Clinically improving, sepsis resolved. Zosyn DC'd Doing well on Levaquin. Dispo wean off oxygen. (2) Pneumonia Current Visit: Yes Status: Acute Assessment and Plan: Resp viral panel negative. CTA showed findings of possible pneumonia Procalcitonin pending. Continue Levaquin, DC Zosyn. (3) Neurofibromatosis Current Visit: Yes Status: Chronic (4) Flank pain Current Visit: Yes Status: Acute Assessment and Plan: possible pleurtic chest pain due to PNA. CTA showed "bibasilar dependent opacity , likely atelectasis" Other likely cause is musculoskelatal. - Negative for aortic dissection, ruled out with CTA chest, abdomen and pelvis - Negative for PE: none seen on CTA - negative nephrolithiasis ruled out by CT - Negative pancreatitis unlikely with negative lipase - cardiac cause: three negative troponin (5) Calf pain Current Visit: Yes Status: Chronic Assessment and Plan: chronic bilateral calf pain - continue home Lyrica - US duplex L ordered at admission is wnl (6) Mass Current Visit: Yes Status: Chronic Assessment and Plan: Likely due to Neurofibromatous - patient already aware of mass - Time Spent with Patient Total time spent is greater than 50% in coordination of care (as documented) at patient's floor/unit and/or counseling patient: Internal Medicine: Result - Labs CBC & Chem 7: 07/18/18 06:30 07/18/18 06:30 Labs: Short CBC 07/18/18 Range/Units 06:30 WBC 5.7 (4.3-11.1) K/mcL Hgb 12.5 (11.5-15.4) g/dL Hct 36.6 (35.3-44.9) % Plt Count 187 (140-400) K/mcL Neutrophils # 4.6 (1.6-8.9) K/mcL BMP 07/18/18 06:30 Sodium 133 L Potassium 3.6 Chloride 102 Carbon Dioxide 27 BUN 8 Creatinine 0.70 Glucose 121 H Calcium 8.6 - ABG Interpretation ABG results: PT/INR, D-dimer PT 12.6 Seconds (9.4-12.1) H 07/15/18 19:55 - VTE Documentation of Mechanical Device: Intermittent pneumatic compression device Consult Discharge Plan - Plan Referrals: Dillan Kim, [Primary Care Provider] - (1) Sepsis Qualifiers: Sepsis type: sepsis due to unspecified organism Qualified Code(s): A41.9 - Sepsis, unspecified organism (2) Pneumonia Qualifiers: Pneumonia type: due to unspecified organism Laterality: unspecified laterality Lung location: unspecified part of lung Qualified Code(s): J18.9 - Pneumonia, unspecified organism (5) Calf pain Qualifiers: Laterality: bilateral Qualified Code(s): M79.661 - Pain in right lower leg; M79.662 - Pain in left lower leg
[2018-07-18] MEDS: *HR* Promethazine 25 MG/ML VIAL IVP PRN (16:28)
[2018-07-18] MEDS: Ondansetron ODT 4 MG TAB.RAPDIS SL PRN (17:12)
[2018-07-19 04:15] LABS: Basophils % 0.4 %; Eosinophils # 0.3 K/mcL (0.0-0.6); Hematocrit 37.2 % (35.3-44.9); Hemoglobin 12.5 g/dL (11.5-15.4); Immature Granulocytes % 1.1 % (0-4); Lymphocytes # 0.9 K/mcL (0.6-4.6); Lymphocytes % 18.7 %; Mean Corpuscular HGB Conc 33.6 g/dL (31.6-35.5); Mean Corpuscular Hemoglobin 29.3 pg (28.0-33.3); Mean Corpuscular Volume 87.1 fL (83.0-100.0); Mean Platelet Volume 10.4 fL (9.4-12.4); Monocytes # 0.4 K/mcL (0.0-1.3); Monocytes % 9.7 %; Neutrophils # 2.9 K/mcL (1.6-8.9); Platelet Count 186 K/mcL (140-400); Red Blood Count 4.27 M/mcL (3.82-4.97); Red Cell Distribution Width 12.9 % (11.5-14.5); Segmented Neutrophils % 63.1 %
[2018-07-19 04:34] LABS: BUN/Creatinine Ratio 11 (6-26); Blood Urea Nitrogen 7 mg/dL (6-20); Calcium 8.7 mg/dL (8.6-10.3); Carbon Dioxide 28 mEq/L (23-29); Chloride 102 mEq/L (98-107); Glucose 98 mg/dL (70-105); Osmolality,Calculated 282 (280-300); Potassium 3.4 mEq/L (3.5-5.1); Sodium 137 mEq/L (136-145); eGFR For Non-African Americans > 60 (> 60)
[2018-07-19] MEDS: *HR* Heparin 5,000 UNIT/ML VIAL SQ SCH ×2 (05:44→17:48)
[2018-07-19] MEDS: Famotidine 20 MG TABLET PO SCH ×2 (08:16→20:12)
[2018-07-19] MEDS: Pregabalin 75 MG CAPSULE PO SCH ×3 (08:20→20:11)
--- NOTE | 2018-07-19 10:23 | Internal Med Progress Note ---
<Wendy Singh - Last Filed: 07/19/18 12:54> Hospitalist Progress Note - Encounter Date of Encounter: 07/19/18 Time of Encounter: 12:57 - Subjective Interval History: 58 y/o female with history of Neurofibromatous treated for PNA . Her back pain is improving and nausa has resolved . Denies shortness of breath, cough, wheese , fever or chills. She plans to travel out of state on Thursday and wants to go home when possible. She is currently dependent on 2L of oxygen. - Exam Vitals: Temp Pulse Resp BP Pulse Ox 97.8 F 86 15 132/81 99 07/19/18 06:34 07/19/18 06:34 07/19/18 06:34 07/19/18 06:34 07/19/18 06:34 Exam: General : pleasant, in no acute distress, A&Ox3 Cardiac: RRR no murmurs or gallop Respiratory: CTAB no wheeze or rales Abdomen: Soft, not distended, no tenderness, no masses or organomegaly Extremities: pulses intact, no pedal edema - Assessment and Plan (1) Sepsis Current Visit: Yes Status: Acute Assessment and Plan: She no longer meets SIRs criteria- likely source of PNA - blood and urine clx no growth - negative strep pneumo antigen, negative legionella antigen (2) Pneumonia Current Visit: Yes Status: Acute Assessment and Plan: Community acquired, still oxygen dependent - continue levaquin as 750 mg PO- changed to after lost IV accesses ; day 3 of 5 - continue Phenegran PRN for nausea - attempted to wean oxygen today with saturation drop to 84% on room air - continue to wean oxygen as tolerated (3) Flank pain Current Visit: Yes Status: Acute Assessment and Plan: Improving -Likely muscloskeletal or pleurtic complete work up was done last week (4) Calf pain Current Visit: Yes Status: Chronic Assessment and Plan: continue home dose lyrica (5) Neurofibromatosis Current Visit: Yes Status: Chronic Assessment and Plan: follow up as out patient (6) Mass Current Visit: Yes Status: Chronic Assessment and Plan: follow up as outpatient DVT Prophylaxis: Heparin - Summary of Assessment and Plan Summary of Assessment and Plan: Possible discharge tomorrow if able to wean off oxygen - Time Spent with Patient Total time spent is greater than 50% in coordination of care (as documented) at patient's floor/unit and/or counseling patient: 25 - 35 minutes Plan of Care Discussed with: patient Internal Medicine: Result - Labs CBC & Chem 7: 07/19/18 03:38 07/19/18 03:38 Labs: Short CBC 07/19/18 Range/Units 03:38 WBC 4.5 (4.3-11.1) K/mcL Hgb 12.5 (11.5-15.4) g/dL Hct 37.2 (35.3-44.9) % Plt Count 186 (140-400) K/mcL Neutrophils # 2.9 (1.6-8.9) K/mcL BMP 07/19/18 03:38 Sodium 137 Potassium 3.4 L Chloride 102 Carbon Dioxide 28 BUN 7 Creatinine 0.66 Glucose 98 Calcium 8.7 - ABG Interpretation ABG results: PT/INR, D-dimer PT 12.6 Seconds (9.4-12.1) H 07/15/18 19:55 - VTE Documentation of Mechanical Device: Intermittent pneumatic compression device Consult Discharge Plan - Plan Referrals: Dillan Kim DO [Primary Care Provider] - 07/27/18 9:50 am <Juliane Guajardo - Last Filed: 07/19/18 15:31> Hospitalist Progress Note - Encounter Date of Encounter: 07/19/18 - Exam Vitals: Temp Pulse Resp BP Pulse Ox 97.8 F 87 17 120/77 96 07/19/18 11:42 07/19/18 11:31 07/19/18 11:31 07/19/18 11:31 07/19/18 11:31 - Assessment and Plan (1) Sepsis Current Visit: Yes Status: Acute (2) Pneumonia Current Visit: Yes Status: Acute (3) Neurofibromatosis Current Visit: Yes Status: Chronic (4) Flank pain Current Visit: Yes Status: Acute (5) Calf pain Current Visit: Yes Status: Chronic (6) Mass Current Visit: Yes Status: Chronic - Time Spent with Patient Total time spent is greater than 50% in coordination of care (as documented) at patient's floor/unit and/or counseling patient: Internal Medicine: Result - Labs CBC & Chem 7: 07/19/18 03:38 07/19/18 03:38 Labs: Short CBC 07/19/18 Range/Units 03:38 WBC 4.5 (4.3-11.1) K/mcL Hgb 12.5 (11.5-15.4) g/dL Hct 37.2 (35.3-44.9) % Plt Count 186 (140-400) K/mcL Neutrophils # 2.9 (1.6-8.9) K/mcL BMP 07/19/18 03:38 Sodium 137 Potassium 3.4 L Chloride 102 Carbon Dioxide 28 BUN 7 Creatinine 0.66 Glucose 98 Calcium 8.7 - ABG Interpretation ABG results: PT/INR, D-dimer PT 12.6 Seconds (9.4-12.1) H 07/15/18 19:55 - Attending Attestation I examined this patient and my medical decision-making was reviewed with the Resident Physician Dr. Singh. I agree with the documented findings, disposition and treatment plan as described except to the extent set forth below. <Wendy Singh - Last Filed: 07/19/18 12:54> (1) Sepsis Qualifiers: Sepsis type: sepsis due to unspecified organism Qualified Code(s): A41.9 - Sepsis, unspecified organism (2) Pneumonia Qualifiers: Pneumonia type: due to unspecified organism Laterality: unspecified laterality Lung location: unspecified part of lung Qualified Code(s): J18.9 - Pneumonia, unspecified organism (4) Calf pain Qualifiers: Laterality: bilateral Qualified Code(s): M79.661 - Pain in right lower leg; M79.662 - Pain in left lower leg <Juliane Guajardo - Last Filed: 07/19/18 15:31> (1) Sepsis Qualifiers: Sepsis type: sepsis due to unspecified organism Qualified Code(s): A41.9 - Sepsis, unspecified organism (2) Pneumonia Qualifiers: Pneumonia type: due to unspecified organism Laterality: unspecified laterality Lung location: unspecified part of lung Qualified Code(s): J18.9 - Pneumonia, unspecified organism (5) Calf pain Qualifiers: Laterality: bilateral Qualified Code(s): M79.661 - Pain in right lower leg; M79.662 - Pain in left lower leg
[2018-07-19] MEDS: Acetaminophen 325 MG TABLET PO PRN (10:57)
[2018-07-19] MEDS: levoFLOXacin 750 MG TABLET PO SCH (12:11)
[2018-07-19] MEDS: OXYCODONE Oral CONC 10 MG/0.5 ML ORAL.SYG SL PRN (22:09)
[2018-07-20 04:26] LABS: Basophils % 0.7 %; Eosinophils # 0.3 K/mcL (0.0-0.6); Eosinophils % 6.9 %; Hematocrit 38.3 % (35.3-44.9); Hemoglobin 12.8 g/dL (11.5-15.4); Immature Granulocytes % 2.9 % (0-4); Lymphocytes # 1.2 K/mcL (0.6-4.6); Lymphocytes % 26.4 %; Mean Corpuscular HGB Conc 33.4 g/dL (31.6-35.5); Mean Corpuscular Hemoglobin 28.7 pg (28.0-33.3); Mean Corpuscular Volume 85.9 fL (83.0-100.0); Mean Platelet Volume 9.8 fL (9.4-12.4); Monocytes # 0.5 K/mcL (0.0-1.3); Monocytes % 10.7 %; Neutrophils # 2.4 K/mcL (1.6-8.9); Platelet Count 217 K/mcL (140-400); Red Blood Count 4.46 M/mcL (3.82-4.97); Red Cell Distribution Width 12.7 % (11.5-14.5); Segmented Neutrophils % 52.4 %
[2018-07-20 04:45] LABS: BUN/Creatinine Ratio 16 (6-26); Blood Urea Nitrogen 11 mg/dL (6-20); Calcium 9.1 mg/dL (8.6-10.3); Carbon Dioxide 28 mEq/L (23-29); Chloride 100 mEq/L (98-107); Glucose 111 mg/dL (70-105); Osmolality,Calculated 282 (280-300); Potassium 3.3 mEq/L (3.5-5.1); Sodium 136 mEq/L (136-145); eGFR For Non-African Americans > 60 (> 60)
[2018-07-20] MEDS: *HR* Heparin 5,000 UNIT/ML VIAL SQ SCH (04:58)
[2018-07-20 06:44] VITALS: BP 136/83
[2018-07-20] MEDS: Famotidine 20 MG TABLET PO SCH (08:40)
[2018-07-20] MEDS: Pregabalin 75 MG CAPSULE PO SCH (08:43)
[2018-07-20] MEDS: Acetaminophen 325 MG TABLET PO PRN (08:43)
[2018-07-20] MEDS: levoFLOXacin 750 MG TABLET PO SCH (08:43)
--- NOTE | 2018-07-20 13:51 | Discharge Summary ---
<Wendy Singh - Last Filed: 07/20/18 14:44> - NOTES TO OUTPATIENT PROVIDER Notes to Outpatient Provider: She has one day of levaquin to complete as out patient. She should follow up for known medistinum mass likely related to neurofibromatosis. Orders not resulted at time of discharge: Pending orders 07/16/18 09:11 Culture,Sputum with Gram Stain [RM] Routine Mycoplasma pneumoniae IgG IgM Routine 07/16/18 09:38 Culture,Blood [BC] Routine 07/21/18 04:00 Basic Metabolic Panel AM 0400 Date of Encounter: 07/20/18 Time of Encounter: 13:47 - Discharge Diagnosis (1) Sepsis Priority: Primary Status: Resolved Qualifiers: Sepsis type: sepsis due to unspecified organism Qualified Code(s): A41.9 - Sepsis, unspecified organism (2) Pneumonia Priority: Secondary Status: Acute Qualifiers: Pneumonia type: due to unspecified organism Laterality: unspecified laterality Lung location: unspecified part of lung Qualified Code(s): J18.9 - Pneumonia, unspecified organism (3) Flank pain Priority: Secondary Status: Resolved (4) Neurofibromatosis Priority: Secondary Status: Chronic (5) Mass Priority: Secondary Status: Chronic Hospital course: Ms. yS is a 58 year old female with history of neurofibromatosis presented with shortness of breath and right sided back pain. In th ER her initial lactate was elevated at 2.4, but later resolved to <0.2. Her lipase was also low at 9. Chest x-ray showed ill-defined perihilar and bibasilar opacities concerning for pulmonary edema. CTA was negative for PE, but a developing pneumonia could not be excluded. CT abdomen ruled out nephrolithiasis. At admission she meet 3 SIRS criteria for leukocytosis, tachycardia, and tachypnea . Further workup of back pain on 07-16 included CTA of chest, abdomen and pelvis were negative for aortic aneurysm rupture and troponin negative x3 - thus it was attributed to muscloskeletal or pluertic pain and later resolved. Her pneumonia was treated with zosyn and Levaquin . On 07-17 her respiratory panel, legionella antigen, step pnuemo anitgen and mycoplasma Ig were negative and blood cultures showed no growth - treatment was deescalated to just Levaquin. On day of discharge she was weaned of oxygen with stable vitals saturation of 96% on room air - remained afebrile and her WBC was 4.5. She continued to deny fever, cough, or chills. Also her potassium of 3.3 was treated with 40 mg oral. Discharge discussed with: patient - Time Spent with Patient Total time spent providing and/or coordinating discharge services: Greater than 30 minutes - Discharge Medications Prescriptions: levoFLOXacin [Levaquin] 750 mg PO DAILY #1 tablet Home Medications: Amitriptyline HCl 100 mg PO HS 07/16/18 [History] Citalopram [CeleXA] 20 mg PO DAILY 07/16/18 [History] Estradiol [Estrace] 1 mg PO DAILY 07/16/18 [History] Pregabalin [Lyrica] 150 mg PO TID 07/16/18 [History] Ranitidine HCl [Acid Instrumentation Designer] 150 mg PO BID 07/16/18 [History] levoFLOXacin [Levaquin] 750 mg PO DAILY #1 tablet 07/20/18 [Rx] Allergies/Adverse Reactions: 3 Allergy/AdvReac Type Severity Reaction Status Date / Time adhesive tape AdvReac Itching Verified 07/16/18 01:19 latex AdvReac Itching Verified 07/16/18 01:17 Date of admission: 07/16/18 00:09 Primary care physician: Dillan Kim Consults: 07/20/18 11:53 Consult to Leadership Development Instructor [CONS] Routine Reason for SW Consult: home oxygen on discharge today Discharging clinician: Wendy Singh Anticipated date of discharge: 07/20/18 - Constitutional Vitals: Temp Pulse Resp BP Pulse Ox 98.2 F 78 16 136/83 96 07/20/18 06:43 07/20/18 06:43 07/20/18 06:43 07/20/18 06:43 07/20/18 13:41 General appearance: Present: cooperative, mild distress, A&O X 3, pleasant, answers questions appropriately Exam: breathing easy - Head Head exam: Present: atraumatic, normocephalic - Respiratory Respiratory exam: Present: CTAB. Absent: accessory muscle use, rales, wheezes - Cardiovascular Cardiovascular exam: Present: RRR. Absent: gallop, rubs - GI/Abdominal GI/Abdominal exam: Present: normal bowel sounds. Absent: guarding, mass, tenderness - Extremities Exam Extremities exam: Present: full ROM, warm, radial pulses palpable and symmetrical. Absent: pedal edema - Patient Status Disposition: Home, Self-Care Condition: Good Functional capacity at discharge: independent ambulation Overall status at discharge: patient is progressing back to baseline - Discharge Instructions Instructions: Levofloxacin (By mouth), Bacterial Pneumonia (DC) Follow Up With: Dillan Kim DO [Primary Care Provider] - 07/27/18 9:50 am Additional Instructions: As tolerated. - Diet and Activity Activity: increase activity as tolerated Diet: regular diet - VTE Documentation of Mechanical Device: Intermittent pneumatic compression device <Amy Mullerbu - Last Filed: 07/20/18 15:48> Orders not resulted at time of discharge: Pending orders 07/16/18 09:11 Culture,Sputum with Gram Stain [RM] Routine Mycoplasma pneumoniae IgG IgM Routine 07/16/18 09:38 Culture,Blood [BC] Routine Date of Encounter: 07/20/18 - Discharge Diagnosis (1) Flank pain Status: Resolved (2) Mass Status: Chronic (3) Pneumonia Status: Acute Qualifiers: Pneumonia type: due to unspecified organism Laterality: unspecified laterality Lung location: unspecified part of lung Qualified Code(s): J18.9 - Pneumonia, unspecified organism (4) Calf pain Status: Chronic Qualifiers: Laterality: bilateral Qualified Code(s): M79.661 - Pain in right lower leg ; M79.662 - Pain in left lower leg (5) Neurofibromatosis Status: Chronic (6) Sepsis Status: Resolved Qualifiers: Sepsis type: sepsis due to unspecified organism Qualified Code(s): A41.9 - Sepsis, unspecified organism Hospital course: Ms. Sy is a 58 year old female - Time Spent with Patient Total time spent providing and/or coordinating discharge services: Date of admission: 07/16/18 00:09 Primary care physician: Dillan Kim Consults: 07/20/18 11:53 Consult to Leadership Development Instructor [CONS] Routine Reason for SW Consult: home oxygen on discharge today - Constitutional Vitals: Temp Pulse Resp BP Pulse Ox 98.2 F 78 16 136/83 96 07/20/18 06:43 07/20/18 06:43 07/20/18 06:43 07/20/18 06:43 07/20/18 13:41 - Attending Attestation I examined this patient and my medical decision-making was reviewed with the Resident Physician Dr. Singh . I agree with the documented findings, disposition and treatment plan as described except to the extent set forth below. Ms. Sy is a 58 year old female with history of neurofibromatosis and recurrent pneumonia pt admitted here with acute hypoxic resp failure and pneumonia. She was started on empirical abx and supportive care. Her symptoms improved now. She is breathing comfortably on RA. So will d/c her home in stable condition today. Gen: A, A< O x3 Chest: Diminished BS b/l, mild wheezing, no crackles.
[2018-07-22 08:47] LABS: Mycoplasma pneumoniae IgG 0.41 U/L (<=0.09)
== END 2018-07-20 15:06 | disposition home or self-care (01) ==
LOC: EMEROOARM 19:16 → 2NENU 19:16
PROVIDERS: ADMIT Family Medicine; ATTEND Family Medicine